=== PATIENT | male | born 2000 | race Caucasian/White ===

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

== ENCOUNTER 2022-07-11 22:24 | Emergency (ER) | payer OTHER ==
[~2022-07-11] VITALS: Ht 182.9 cm; Wt 99.7 kg
[~2022-07-11 22:24] MED LIST: MIRA3350 PO; PENI500T OR; PRIL20TA2 PO; ZOFR4TAB14 PO
[2022-07-11 22:28] VITALS: BP 135/88
[2022-07-11] MEDS ORDERED: VENL150C43 (22:36)
[2022-07-11] MEDS ORDERED: TRAZ-252 (22:36)
[2022-07-11] MEDS ORDERED: DIVA500T94 (22:36)
== END 2022-07-11 23:50 | disposition left against medical advice (07) ==
LOC: M ED 22:24
DX: Z53.21 Procedure and treatment not carried out due to patient leaving prior to being seen by health care provider (principal)

== ENCOUNTER 2022-10-25 14:04 | Emergency (ER) | payer OTHER ==
[~2022-10-25] VITALS: Ht 182.9 cm; Wt 97.7 kg
[~2022-10-25 14:04] MED LIST changes: +DIVA500T94; +TRAZ-252; +VENL150C43
[2022-10-25] MEDS ORDERED: DIVA250T7 (14:17)
[2022-10-25] MEDS ORDERED: NS 1,000 ML IV ONE (15:15)
[2022-10-25 15:53] LABS: BASO # 0.1 10^3/uL (0.0-0.2); BASO % 0.5 % (0.0-1.0); EOS # 0.1 10^3/uL (0.0-0.5); EOS % 0.5 % (0.0-3.0); HEMATOCRIT 44.2 % (42.0-52.0); HEMOGLOBIN 15.4 g/dl (13.5-17.5); LYMPH # 1.9 10^3/uL (1.5-5.0); LYMPH % 17.7 % (24.0-44.0); MEAN CORPUSCULAR HEMOGLOBIN 29.1 pg (27.0-33.0); MEAN CORPUSCULAR HGB CONC 34.8 g/dl (32.0-36.5); MEAN CORPUSCULAR VOLUME 83.4 fl (80.0-96.0); MONO # 0.6 10^3/uL (0.0-0.8); MONO % 5.4 % (2.0-8.0); NEUTROPHILS % 75.4 % (36.0-66.0); PLATELET COUNT, AUTOMATED 324 10^3/uL (150-450); WHITE BLOOD COUNT 10.7 10^3/uL (4.0-10.0)
[2022-10-25 16:17] LABS: VALPROIC ACID (DEPAKOTE) < 3.0 UG/ML (50.0-100.0)
[2022-10-25 16:18] LABS: ALKALINE PHOSPHATASE 62 U/L (46-116); ALT/SGPT 16 U/L (7.0-40); AST/SGOT 17 U/L (<34); BILIRUBIN,TOTAL 2.9 MG/DL (0.3-1.2); BLOOD UREA NITROGEN 13 MG/DL (9-23); CARBON DIOXIDE LEVEL 25 MMOL/L (20-31); CHLORIDE LEVEL 106 MMOL/L (98-107); CREATININE FOR GFR 1.26 MG/DL (0.70-1.30); GLOMERULAR FILTRATION RATE > 60.0 (>60); GLUCOSE, FASTING 100 MG/DL (60-100); MAGNESIUM LEVEL 1.9 MG/DL (1.8-2.4); PHOSPHORUS LEVEL 1.7 MG/DL (2.5-4.9); POTASSIUM SERUM 4.4 MMOL/L (3.5-5.1); SODIUM LEVEL 138 MMOL/L (136-145); TOTAL PROTEIN 7.9 G/DL (5.7-8.2)
[2022-10-25 19:32] VITALS: BP 132/88
== END 2022-10-25 19:33 | disposition home or self-care (01) ==
LOC: M ED 14:04
DX: G40.89 Other seizures (principal); R11.2 Nausea with vomiting, unspecified; F41.9 Anxiety disorder, unspecified; F43.10 Post-traumatic stress disorder, unspecified; F17.200 Nicotine dependence, unspecified, uncomplicated; F12.20 Cannabis dependence, uncomplicated; Z79.83 Long term (current) use of bisphosphonates; Z87.820 Personal history of traumatic brain injury; Z91.013 Allergy to seafood

== ENCOUNTER 2022-10-28 14:52 | Emergency (ER) | payer OTHER ==
[~2022-10-28] VITALS: Ht 182.9 cm; Wt 96.4 kg
[~2022-10-28 14:52] MED LIST changes: +DIVA250T7
[2022-10-28 16:21] LABS: BASO # 0.1 10^3/uL (0.0-0.2); BASO % 1.1 % (0.0-1.0); EOS # 0.1 10^3/uL (0.0-0.5); EOS % 1.1 % (0.0-3.0); HEMATOCRIT 47.2 % (42.0-52.0); HEMOGLOBIN 16.4 g/dl (13.5-17.5); LYMPH # 2.2 10^3/uL (1.5-5.0); MEAN CORPUSCULAR HEMOGLOBIN 29.2 pg (27.0-33.0); MEAN CORPUSCULAR HGB CONC 34.7 g/dl (32.0-36.5); MONO # 0.8 10^3/uL (0.0-0.8); MONO % 8.9 % (2.0-8.0); NEUTROPHILS # 5.9 10^3/uL (1.5-8.5); NEUTROPHILS % 63.9 % (36.0-66.0); PLATELET COUNT, AUTOMATED 394 10^3/uL (150-450); RED BLOOD COUNT 5.62 10^6/uL (4.30-6.10); WHITE BLOOD COUNT 9.3 10^3/uL (4.0-10.0)
[2022-10-28 16:32] LABS: LIPASE 27 U/L (12-53)
[2022-10-28 16:33] LABS: VALPROIC ACID (DEPAKOTE) < 3.0 UG/ML (50.0-100.0)
[2022-10-28 16:38] LABS: ALKALINE PHOSPHATASE 65 U/L (46-116); ALT/SGPT 15 U/L (7.0-40); AST/SGOT 18 U/L (<34); BILIRUBIN,TOTAL 3.5 MG/DL (0.3-1.2); BLOOD UREA NITROGEN 16 MG/DL (9-23); CARBON DIOXIDE LEVEL 27 MMOL/L (20-31); CHLORIDE LEVEL 104 MMOL/L (98-107); CREATININE FOR GFR 1.27 MG/DL (0.70-1.30); GLOMERULAR FILTRATION RATE > 60.0 (>60); GLUCOSE, FASTING 89 MG/DL (60-100); POTASSIUM SERUM 4.4 MMOL/L (3.5-5.1); SODIUM LEVEL 140 MMOL/L (136-145); TOTAL PROTEIN 8.3 G/DL (5.7-8.2)
[2022-10-28] MEDS ORDERED: MORPHINE 4 MG/ML 1ML VIAL IV ONE (17:05)
[2022-10-28] MEDS ORDERED: ONDANSETRON 4MG 2ML VIAL IV ONE (17:05)
[2022-10-28] MEDS ORDERED: NS 1,000 ML IV ONE (17:05)
[2022-10-28] MEDS: GASTROGRAFIN SOLUTION 30ML PO SCH ×2 (17:53→18:24)
[2022-10-28 19:00] VITALS: BP 138/75
[2022-10-28] MEDS ORDERED: ISOVUE-370 76% 100ML VIAL As Ordered ONE (19:12)
[2022-10-28] MEDS ORDERED: ONDA4TAB6 PO (20:21)
== END 2022-10-28 20:44 | disposition home or self-care (01) ==
LOC: M ED 14:52
DX: R11.10 Vomiting, unspecified (principal); E80.7 Disorder of bilirubin metabolism, unspecified; F43.10 Post-traumatic stress disorder, unspecified; F41.9 Anxiety disorder, unspecified; M10.9 Gout, unspecified; F12.10 Cannabis abuse, uncomplicated; Z87.820 Personal history of traumatic brain injury; Z91.013 Allergy to seafood; Z79.83 Long term (current) use of bisphosphonates; Z79.899 Other long term (current) drug therapy
CPT/HCPCS: 74177; 80048; 80076; 80164; 83690; 85025; 93041; 94760; 96374; 96375; 99285; J2270; J2405; Q9963; Q9967

== ENCOUNTER 2023-03-15 09:37 | Emergency (ER) | payer OTHER ==
[~2023-03-15] VITALS: Ht 180.3 cm; Wt 95.5 kg
[~2023-03-15 09:37] MED LIST changes: +ONDA4TAB6 PO
[2023-03-15] MEDS ORDERED: ONDANSETRON 4MG 2ML VIAL IV ONE (10:20)
[2023-03-15] MEDS ORDERED: NS 1,000 ML IV ONE (10:45)
[2023-03-15 11:11] LABS: BASO # 0.1 10^3/uL (0.0-0.2); BASO % 0.6 % (0.0-1.0); EOS # 0.1 10^3/uL (0.0-0.5); EOS % 0.7 % (0.0-3.0); HEMATOCRIT 45.2 % (42.0-52.0); HEMOGLOBIN 15.5 g/dl (13.5-17.5); LYMPH # 1.5 10^3/uL (1.5-5.0); LYMPH % 14.7 % (24.0-44.0); MEAN CORPUSCULAR HEMOGLOBIN 29.1 pg (27.0-33.0); MEAN CORPUSCULAR HGB CONC 34.3 g/dl (32.0-36.5); MONO # 0.7 10^3/uL (0.0-0.8); MONO % 6.8 % (2.0-8.0); NEUTROPHILS # 7.5 10^3/uL (1.5-8.5); NEUTROPHILS % 76.4 % (36.0-66.0); PLATELET COUNT, AUTOMATED 287 10^3/uL (150-450); RED BLOOD COUNT 5.32 10^6/uL (4.30-6.10); WHITE BLOOD COUNT 9.9 10^3/uL (4.0-10.0)
[2023-03-15] MEDS ORDERED: KETOROLAC 30 MG/ML 1ML VIAL IV ONE (11:20)
[2023-03-15 11:25] LABS: ALBUMIN 4.4 G/DL (3.2-5.2); ALKALINE PHOSPHATASE 57 U/L (46-116); ALT/SGPT 15 U/L (7.0-40); AST/SGOT 9 U/L (<34); BILIRUBIN,DIRECT 0.3 MG/DL (<0.4); BLOOD UREA NITROGEN 17 MG/DL (9-23); CARBON DIOXIDE LEVEL 26 MMOL/L (20-31); CHLORIDE LEVEL 109 MMOL/L (98-107); CPK CREATINE PHOSPHOKINASE 100 U/L (46-171); CREATININE FOR GFR 1.04 MG/DL (0.70-1.30); GLOMERULAR FILTRATION RATE > 60.0 (>60); GLUCOSE, FASTING 99 MG/DL (60-100); MAGNESIUM LEVEL 1.8 MG/DL (1.8-2.4); POTASSIUM SERUM 4.7 MMOL/L (3.5-5.1); SODIUM LEVEL 137 MMOL/L (136-145); TOTAL PROTEIN 7.3 G/DL (5.7-8.2)
[2023-03-15 11:27] LABS: PROLACTIN 5.64 NG/ML (2.1-17.7)
[2023-03-15 11:30] LABS: AMPHETAMINES LEVEL URINE NEGATIVE (NEGATIVE); BARBITURATES URINE NEGATIVE (NEGATIVE); BENZODIAZEPINES URINE NEGATIVE (NEGATIVE); COCAINE METABOLITE URINE NEGATIVE (NEGATIVE); METHADONE URINE NEGATIVE (NEGATIVE); OPIATES URINE NEGATIVE (NEGATIVE); PHENCYCLIDINE URINE NEGATIVE (NEGATIVE)
[2023-03-15 11:32] LABS: CANNABINOIDS URINE POSITIVE (NEGATIVE)
[2023-03-15] MEDS ORDERED: BACITRACIN OINTMENT 30GM TUBE TOP ONE (12:15)
[2023-03-15] MEDS ORDERED: ZONI50CA11 PO (15:02)
[2023-03-15 15:35] VITALS: BP 112/67; TEMP 98.5; O2SAT 99
== END 2023-03-15 15:58 | disposition home or self-care (01) ==
LOC: M ED 09:37
DX: R55 Syncope and collapse (principal); S00.93XA Contusion of unspecified part of head, initial encounter; S06.0X9A Concussion with loss of consciousness of unspecified duration, initial encounter; T07.XXXA Unspecified multiple injuries, initial encounter; V19.9XXA Pedal cyclist (driver) (passenger) injured in unspecified traffic accident, initial encounter; Y92.410 Unspecified street and highway as the place of occurrence of the external cause; G40.909 Epilepsy, unspecified, not intractable, without status epilepticus; Z91.013 Allergy to seafood
CPT/HCPCS: 70450; 70486; 72125; 73590; 80048; 80076; 80307; 82550; 83735; 84146; 85025; 93005; 93041; 96374; 96375; 99284; J1885; J2405

== ENCOUNTER 2024-04-14 16:02 | Emergency (ER) | payer OTHER ==
[~2024-04-14] VITALS: Ht 182.9 cm; Wt 92.9 kg
[~2024-04-14 16:02] MED LIST changes: +ONDA-282 PO; -ONDA4TAB6 PO; +ZONI50CA11 PO
[2024-04-14] MEDS ORDERED: KEPP1TAB PO (16:12)
[2024-04-14 18:35] LABS: BASO # 0.1 10^3/uL (0.0-0.2); BASO % 0.7 % (0.0-1.0); EOS # 0.1 10^3/uL (0.0-0.5); EOS % 0.8 % (0.0-3.0); HEMATOCRIT 46.8 % (42.0-52.0); HEMOGLOBIN 16.4 g/dl (13.5-17.5); LYMPH # 2.7 10^3/uL (1.5-5.0); LYMPH % 23.9 % (24.0-44.0); MEAN CORPUSCULAR HEMOGLOBIN 29.7 pg (27.0-33.0); MEAN CORPUSCULAR VOLUME 84.8 fl (80.0-96.0); MONO # 0.7 10^3/uL (0.0-0.8); MONO % 6.3 % (2.0-8.0); NEUTROPHILS # 7.6 10^3/uL (1.5-8.5); NEUTROPHILS % 67.8 % (36.0-66.0); PLATELET COUNT, AUTOMATED 330 10^3/uL (150-450); RED BLOOD COUNT 5.52 10^6/uL (4.30-6.10); WHITE BLOOD COUNT 11.3 10^3/uL (4.0-10.0)
[2024-04-14 18:56] LABS: LIPASE 28 U/L (12-53)
[2024-04-14 18:59] LABS: ALBUMIN 4.8 G/DL (3.2-5.2); ALKALINE PHOSPHATASE 66 U/L (46-116); ALT/SGPT 24 U/L (7.0-40); AST/SGOT 11 U/L (<34); BILIRUBIN,DIRECT 0.6 MG/DL (<0.4); BILIRUBIN,TOTAL 2.2 MG/DL (0.3-1.2); BLOOD UREA NITROGEN 13 MG/DL (9-23); CALCIUM LEVEL 9.6 MG/DL (8.5-10.1); CARBON DIOXIDE LEVEL 29 MMOL/L (20-31); CHLORIDE LEVEL 105 MMOL/L (98-107); CREATININE FOR GFR 1.25 MG/DL (0.70-1.30); GLOMERULAR FILTRATION RATE > 60.0 (>60); GLUCOSE, FASTING 84 MG/DL (60-100); POTASSIUM SERUM 4.2 MMOL/L (3.5-5.1); SODIUM LEVEL 138 MMOL/L (136-145); TOTAL PROTEIN 7.7 G/DL (5.7-8.2)
[2024-04-14] MEDS ORDERED: ISOVUE-370 76% 100ML VIAL As Ordered ONE (19:47)
[2024-04-14] MEDS: FAMOTIDINE 20MG/2ML VIAL IVP ONE (20:12)
[2024-04-14] MEDS: NS 1,000 ML IV ONE ×2 (20:12→21:50)
[2024-04-14 20:19] LABS: CK-MB VALUE MASS < 1.0 NG/ML (<3.6)
[2024-04-14 20:24] LABS: CPK CREATINE PHOSPHOKINASE 87 U/L (46-171); MB/CK RELATIVE INDEX 1.14 (< OR =4)
[2024-04-14] MEDS: METOCLOPRAMIDE INJ 10MG/2ML VIAL IV ONE (21:50)
[2024-04-15] MEDS ORDERED: REGL10TA6 PO (00:39)
[2024-04-15 01:04] VITALS: BP 146/92; TEMP 97.4; O2SAT 96
== END 2024-04-15 02:08 | disposition home or self-care (01) ==
LOC: M ED 16:02
DX: R11.2 Nausea with vomiting, unspecified (principal); E80.7 Disorder of bilirubin metabolism, unspecified; R00.1 Bradycardia, unspecified; G40.909 Epilepsy, unspecified, not intractable, without status epilepticus; F12.10 Cannabis abuse, uncomplicated; Z91.013 Allergy to seafood; Z91.030 Bee allergy status; Z91.048 Other nonmedicinal substance allergy status; Z79.899 Other long term (current) drug therapy
CPT/HCPCS: 74177; 80048; 80076; 82550; 82553; 83690; 84484; 85025; 93005; 96361; 96374; 96375; 99284; J2765; Q9967

== ENCOUNTER → 2024-07-11 | Outpatient (CLI) | payer OTHER ==
[~2024-07-11] MED LIST changes: +KEPP1TAB PO; +REGL10TA6 PO
== END ==
LOC: M SLEEP 20:00
PROVIDERS: ATTEND Internal Medicine
DX: R06.83 Snoring (principal)

== ENCOUNTER → 2025-01-26 | Outpatient (CLI) | payer OTHER | LOC: M RAD 06:29 | PROVIDERS: ATTEND Internal Medicine | DX: E80.6 Other disorders of bilirubin metabolism (principal) ==